=== PATIENT | female | born 1960 | race Two or more races ===

== ENCOUNTER 2022-06-28 08:00 | Inpatient (IN) | payer OTHER ==
[~2022-06-28] VITALS: Ht 162.6 cm; Wt 68.5 kg
[2022-06-28] MEDS ORDERED: ARAVA (08:50)
[2022-06-30] MEDS ORDERED: LEFLUNOMIDE20 MG (09:47)
[2022-06-30] MEDS ORDERED: RIZATRIPTAN10 MG (11:00)
[2022-07-02] MEDS ORDERED: IBU600 MG PO (08:15)
[2022-07-02] MEDS ORDERED: TRAM1TAB98 PO (08:15)
[2022-07-02] MEDS ORDERED: FAMOTIDINE20 MG PO (08:16)
== END 2022-07-02 09:39 | disposition home or self-care (01) | DRG 743 ==
LOC: O/R 06-30 05:15 → OB/GYN 06-30 05:15 → SURH 06-30 08:00 → EDSTATUS 06-30 08:00 → CIR.AMB 06-30 08:00 → SURH 06-30 11:30 → OB/GYN 06-30 15:10
PROVIDERS: ADMIT Obstetrics & Gynecology; ATTEND Obstetrics & Gynecology
PROC: 0UT7FZZ Resection of Bilateral Fallopian Tubes, Via Natural or Artificial Opening With Percutaneous Endoscopic Assistance (ICD-10-PCS; 2022-06-30)
PROC: 0UT2FZZ Resection of Bilateral Ovaries, Via Natural or Artificial Opening With Percutaneous Endoscopic Assistance (ICD-10-PCS; 2022-06-30)
PROC: 0DNN4ZZ Release Sigmoid Colon, Percutaneous Endoscopic Approach (ICD-10-PCS; 2022-06-30)
PROC: 0DNW4ZZ Release Peritoneum, Percutaneous Endoscopic Approach (ICD-10-PCS; 2022-06-30)
PROC: 0TJB8ZZ Inspection of Bladder, Via Natural or Artificial Opening Endoscopic (ICD-10-PCS; 2022-06-30)
PROC: 0UT9FZZ Resection of Uterus, Via Natural or Artificial Opening With Percutaneous Endoscopic Assistance (ICD-10-PCS; principal; 2022-06-30 11:30)
DX: D25.1 Intramural leiomyoma of uterus (principal); D25.2 Subserosal leiomyoma of uterus; D25.0 Submucous leiomyoma of uterus; Z20.822 Contact with and (suspected) exposure to COVID-19